=== PATIENT | male | born 1995 | race African-American/Black ===

== ENCOUNTER 2018-08-24 22:05 | Emergency (ER) | payer OTHER ==
[2018-08-24 22:26] VITALS: BP 128/57; PULSE 76; TEMP 98.1; BMI 34.7
--- NOTE | 2018-08-24 22:26 | PDOC ---
History of Present Illness - General Chief Complaint: Palpitations Stated Complaint: PALPITATIONS Time Seen by Provider: 08/24/18 22:25 History Source: Patient - History of Present Illness Initial Comments: 08/24/18 22:39 23-year-old male complaining of palpitations on and off for several months. Patient also reports palpitations today and chest pain. "I only noticed that it is not there when I am busy doing work "patient reports recent loss of mom one month ago due to heart failure, patient had a conversation with his aunt who encouraged him to do go to the ER [facility] for evaluation. Denies nausea, vomiting,, diaphoresis, headache, numbness, pleurisy, Past History - Past Medical History Allergies/Adverse Reactions: Allergies Allergy/AdvReac Type Severity Reaction Status Date / Time No Known Allergies Allergy Verified 08/24/18 22:11 COPD: No - Suicide/Smoking/Psychosocial Hx Smoking History: Never smoked Have you smoked in the past 12 months: No Information on smoking cessation initiated: No Hx Alcohol Use: No Drug/Substance Use Hx: No Review of Systems - Review of Systems Able to Perform ROS?: Yes Is the patient limited Estonian proficient: No Constitutional: No: Symptoms Reported, See HPI, Chills, Diaphoresis, Fever, Loss of Appetite, Malaise, Night Sweats, Weakness, Weight Stable, Unintentional Wgt. Loss, Unexplained wgt Loss, Other Respiratory: No: Symptoms reported, See HPI, Cough, Orthopnea, Shortness of Breath, SOB with Exertion, SOB at Rest, Stridor, Wheezing, Productive cough, Hemoptysis, Other Cardiac (ROS): Yes: Chest Pain, Palpitations ABD/GI: No: Symptoms Reported, See HPI, Abdominal Distended, Abd. Pain w/ defecation, Blood Streaked Bowels, Constipated, Diarrhea, Difficulty Swallowing , Nausea, Poor Appetite, Poor Fluid Intake, Rectal Bleeding, Vomiting, Indigestion, Abdominal cramping, Tarry Stools, Other *Physical Exam - Vital Signs Last Vital Signs Temp Pulse Resp BP Pulse Ox 98.1 F 76 18 128/57 L 100 08/24/18 22:10 08/24/18 22:10 08/24/18 22:10 08/24/18 22:10 08/24/18 22:10 Heart Score/ECG Review - History History: Slightly suspicious - Electrocardiogram EKG: Normal - Age Age: </= 45 - Risk Factors Risk Factors Heart Score: Yes Hx Obesity Based on the list above the patient has:: 1-2 risk factors - Troponin Troponin: </= normal limit - Score Heart Score - Total: 1 - ECG Intrepretation Rhythm: Regular Rhythm Comment:: 08/24/18 23:45 NSR witj sinus arrythmia : 62bpm Moderate Sedation - Procedure Monitoring Vital Signs: Procedure Monitoring Vital Signs Temperature 98.1 F 08/24/18 22:10 Pulse Rate 76 08/24/18 22:10 Respiratory Rate 18 08/24/18 22:10 Blood Pressure 128/57 L 08/24/18 22:10 O2 Sat by Pulse Oximetry (%) 100 08/24/18 22:10 ED Treatment Course - LABORATORY CBC & Chemistry Diagram: 08/24/18 22:37 08/24/18 22:37 - ADDITIONAL ORDERS Additional order review: Laboratory Results 08/24/18 22:37 Sodium 140 Potassium 4.0 Chloride 104 Carbon Dioxide 30 Anion Gap 6 L BUN 15 Creatinine 1.0 Creat Clearance w eGFR > 60 Random Glucose 100 Calcium 9.0 Total Bilirubin 0.3 AST 18 ALT 26 Alkaline Phosphatase 72 Creatine Kinase 220 Creatine Kinase Index 0.4 CK-MB (CK-2) < 1.0 Troponin I < 0.02 Total Protein 7.6 Albumin 3.9 08/24/18 22:37 RBC 5.27 MCV 87.0 MCHC 34.0 RDW 13.0 MPV 7.9 Neutrophils % 60.3 Lymphocytes % 31.0 Monocytes % 7.0 Eosinophils % 1.3 Basophils % 0.4 *DC/Admit/Observation/Transfer Diagnosis at time of Disposition: Palpitations Chest pain Qualifiers: Chest pain type: other chest pain Qualified Code(s): R07.89 - Other chest pain ; R07.8 - Other chest pain - Discharge Dispostion Disposition: HOME - Referrals Referrals: Rudy Sterling MD [Primary Care Provider] - Segun Newsome MD [Staff Physician] - Call tomorrow - Patient Instructions Printed Discharge Instructions: DI for Chest Pain Additional Instructions: please follow up with your doctor and cardiology as soon as possible. return to the ER if symptoms worsen. - Post Discharge Activity
[2018-08-24 22:48] LABS: BASO % 0.4 % (0-2.0); EOS % 1.3 % (0-4.5); HEMATOCRIT 45.8 % (35.4-49); HEMOGLOBIN 15.6 GM/dL (11.7-16.9); MCH 29.6 pg (25.7-33.7); MEAN PLT VOLUME 7.9 fl (7.5-11.1); NEUT % 60.3 % (42.8-82.8); PLATELET COUNT 220 K/MM3 (134-434); RBC 5.27 M/mm3 (4.00-5.60)
[2018-08-24 23:23] LABS: ALBUMIN 3.9 g/dl (3.4-5.0); ALK PHOS 72 U/L (45-117); ANION GAP 6 MMOL/L (8-16); BILIRUBIN,TOTAL 0.3 mg/dL (0.2-1); BLOOD UREA NITROGEN 15 mg/dL (7-18); CHLORIDE 104 mmol/L (98-107); CO2 30 mmol/L (21-32); GLUCOSE,RANDOM 100 mg/dL (74-106); SGOT/AST 18 U/L (15-37); SGPT/ALT 26 U/L (13-61); SODIUM 140 mmol/L (136-145); TOT PROT 7.6 g/dl (6.4-8.2)
--- NOTE | 2018-08-24 23:46 | PDOC ---
*Physical Exam - Vital Signs Last Vital Signs Temp Pulse Resp BP Pulse Ox 98.1 F 76 18 128/57 L 100 08/24/18 22:10 08/24/18 22:10 08/24/18 22:10 08/24/18 22:10 08/24/18 22:10 ED Treatment Course - LABORATORY CBC & Chemistry Diagram: 08/24/18 22:37 08/24/18 22:37 - ADDITIONAL ORDERS Additional order review: Laboratory Results 08/24/18 22:37 Sodium 140 Potassium 4.0 Chloride 104 Carbon Dioxide 30 Anion Gap 6 L BUN 15 Creatinine 1.0 Creat Clearance w eGFR > 60 Random Glucose 100 Calcium 9.0 Total Bilirubin 0.3 AST 18 ALT 26 Alkaline Phosphatase 72 Creatine Kinase 220 Creatine Kinase Index 0.4 CK-MB (CK-2) < 1.0 Troponin I < 0.02 Total Protein 7.6 Albumin 3.9 08/24/18 22:37 RBC 5.27 MCV 87.0 MCHC 34.0 RDW 13.0 MPV 7.9 Neutrophils % 60.3 Lymphocytes % 31.0 Monocytes % 7.0 Eosinophils % 1.3 Basophils % 0.4 Medical Decision Making - Medical Decision Making 08/24/18 23:45 I have discussed this case with the mid level provider and I agree with her assessment and management of the case. *DC/Admit/Observation/Transfer - Referrals Referrals: Rudy Sterling MD [Primary Care Provider] - - Patient Instructions - Post Discharge Activity
--- NOTE | 2018-08-25 16:35 | EKG ---
Test Reason : Blood Pressure : / mmHG Vent. Rate : 062 BPM Atrial Rate : 062 BPM P-R Int : 154 ms QRS Dur : 082 ms QT Int : 362 ms P-R-T Axes : 015 036 024 degrees QTc Int : 367 ms NORMAL SINUS RHYTHM WITH SINUS ARRHYTHMIA EARLY REPOLARIZATION NORMAL ECG NO PREVIOUS ECGS AVAILABLE Confirmed by MD VIVEK, DAV ([id number]) on 08/25/2018 4:35:05 PM Referred By: Confirmed By:DAV DOYLE MD
== END 2018-08-25 | disposition home or self-care (01) ==
LOC: JER 22:05
DX: R07.9 Chest pain, unspecified (principal); R00.2 Palpitations
CPT/HCPCS: 36415; 80053; 82550; 82553; 84484; 85025; 93005; 93010; 99283-25